=== PATIENT | male | born 1970 | race Caucasian/White ===

== ENCOUNTER 2025-03-04 06:13 | Emergency (ER) | payer SELFPAY ==
[~2025-03-04] VITALS: Ht 185.4 cm; Wt 127.0 kg
[2025-03-04 06:24] VITALS: PULSE 81; RESP 19; TEMP 98.1; O2SAT 98
[2025-03-04] MEDS ORDERED: AMOX TR-K CLV1 EAC2 PO (06:38)
[2025-03-04] MEDS ORDERED: DOXYCYCLINE HY100 MG PO (06:38)
== END 2025-03-04 06:48 | disposition home or self-care (01) ==
LOC: ER 06:32
DX: E11.621 Type 2 diabetes mellitus with foot ulcer (principal); L03.116 Cellulitis of left lower limb; E11.40 Type 2 diabetes mellitus with diabetic neuropathy, unspecified
CPT/HCPCS: 99283